=== PATIENT | male | born 1965 | race Caucasian/White ===

== ENCOUNTER 2021-10-28 07:27 | Emergency (ER) | payer OTHER ==
[~2021-10-28] VITALS: Ht 157.5 cm; Wt 72.6 kg
[~2021-10-28 07:27] MED LIST: BENTYL10 MG PO; CYCLOBENZAPRINE10 MG PO; FLEXERIL10 MG PO; LISINOPRIL-HCT1 EACH PO; MEDROL 4MG DOSEP4 MG PO; MIRALAX 238GM238 GM PO; MOBIC7.5 MG PO; NEURONTIN300 MG PO; PERCOCET 10/321 EACH PO; PERCOCET 5-3251 EACH PO; PERCOCET 7.5-31 EACH PO; PREDNISONE 20MG20 MG PO; PROTONIX 40MG T40 MG PO; PROVENTIL2 MG/5 ML PO; REQUIP1 MG PO; REQUIP4 MG PO; ROBAXIN500 MG PO; ROBAXIN750 MG PO; ULTRAM50 MG PO; VENTOLIN HFA IN18 GM INH; VICODIN 10/3251 EACH PO; ZYRTEC10 MG PO
[2021-10-28] MEDS ORDERED: SPIRIVA INHALER (07:48)
[2021-10-28] MEDS ORDERED: CLEOCIN300 MG PO ×2 (08:10→08:13)
== END 2021-10-28 08:39 | disposition home or self-care (01) ==
LOC: FER 07:27
DX: K04.7 Periapical abscess without sinus (principal); F17.200 Nicotine dependence, unspecified, uncomplicated; Z88.0 Allergy status to penicillin; Z88.5 Allergy status to narcotic agent; Z88.6 Allergy status to analgesic agent; Z28.311 Partially vaccinated for COVID-19
CPT/HCPCS: 99282; Q0163